=== PATIENT | male | born 1980 | race Caucasian/White ===

== ENCOUNTER 2017-02-25 19:34 | Emergency (ER) | payer OTHER ==
[~2017-02-25] VITALS: Ht 185.4 cm; Wt 133.8 kg
--- NOTE | 2017-02-25 20:52 | ED PSYCHIATRIC COMPLAINT ---
History of Present Illness General Chief Complaint: General Adult Stated Complaint: NEEDS REFILL OF ZOLOFT, PSYC RETIRED Source: patient Exam Limitations: no limitations Vital Signs & Intake/Output Vital Signs & Intake/Output Vital Signs Date Time Temp Pulse Resp B/P B/P Pulse O2 O2 Flow FiO2 Mean Ox Delivery Rate 02/25 2107 98.7 84 18 152/83 100 Room Air 02/25 2105 100 Room Air 02/25 2011 98.2 80 18 157/88 98 Room Air Allergies Coded Allergies: No Known Drug Allergies (NKDA 02/25/17) Reconcile Medications Clonazepam 0.5 MG TABLET 1 TAB PO QPM PRN ANXIETY (Reported) Sertraline HCl (Zoloft) 25 MG TABLET 1.5 TAB PO DAILY MENTAL HEALTH (Reported ) Sertraline HCl (Zoloft) 25 MG TABLET 1.5 TAB PO DAILY DEPRESSION Triage Note: PT TO ED REQUESTING MED REFILL. HIS PSYCHIATRIST RETIRED AND HE "NEEDS TO FIND A NEW ONE" TAKES ZOLOFT 15 MG 1.5 TABS DAILY Triage Nurses Notes Reviewed? yes Onset: Gradual Duration: constant Timing: recent history Severity: mild Severity Numbers: 1 HPI: Patient is a 37 Y/O male with a past medical history of depression who presents emergency room with a request of a psychiatric provider and medication refill in which he states that his previous provider had suddenly retired where patient has been prescribed Zoloft 25 mg one AND A half tablets for many years now, THE last doses presently one week ago. Patient denies any current symptoms denies any worsening depression and suicide homicidal ideation fever chills. Denies any illicit drug use. (SHELLEY YODER) Past History Travel History Traveled to [place] past 21 day No Medical History Any Pertinent Medical History? see below for history Psychiatric: anxiety, depression Surgical History Surgical History: non-contributory Psychosocial History What is your primary language Luxembourgish Tobacco Use: Quit >30 days ago ETOH Use: occasional use Illicit Drug Use: denies illicit drug use Family History Hx Contributory? No (SHELLEY YODER) Review of Systems Review of Systems Constitutional: Reports: no symptoms. EENTM: Reports: no symptoms. Respiratory: Reports: no symptoms. Cardiovascular: Reports: no symptoms. GI: Reports: no symptoms. Genitourinary: Reports: no symptoms. Musculoskeletal: Reports: no symptoms. Skin: Reports: no symptoms. Neurological/Psychological: Reports: no symptoms. Hematologic/Endocrine: Reports: no symptoms. Immunologic/Allergic: Reports: no symptoms. All Other Systems: Reviewed and Negative (SHELLEY YODER) Physical Exam Physical Exam General Appearance: no apparent distress, alert Neurological/Psychiatric: no motor/sensory deficits, awake, alert, calm Appearance/Memory/Insight: appropriate appearance, appropriate insight, denies illness Behavoir/Eye Contact/Speech: cooperative, normal speech, good eye contact Thoughts/Hallucinations: normal thought pattern, no apparent hallucination Comments: Well-developed well-nourished person in no acute distress HEENT: Normal EENT Neck: Supple, no lymphadenopathy, normal range of motion without pain or tenderness Back: Nontender, no CVA tenderness. Full range of motion Cardiovascular: Regular rate and rhythms no murmurs rubs or gallops, normal JVP Respiratory: Chest nontender. No respiratory distress.breath sounds clear to auscultation bilaterally Abdomen: Soft, nontender nondistended, no appreciable organomegaly. Normal bowel sounds. No ascites Extremity: No edema, no calf tenderness to palpation, normal and equal pulses. Neuro: Alert oriented x3, motor sensory normal, Skin: No appreciable rash on exposed skin, skin is warm and dry. Psych: Mood and affect is normal, memory and judgment is normal. SAD PERSONS Done? patient not suicidal (SHELLEY YODER) Progress Differential Diagnosis: drug intoxication, drug overdose, drug withdrawal, electrolyte abnormality, encephalitis, hypoglycemia, hypothyroidism, IC hem/mass /tumor, meningitis Plan of Care: Patient was in no apparent distress. Patient was given copy of psychiatric referral for follow-up It is confirmed from pharmacy reconciliation the patient does receives a 25 mg one half tablets of Zoloft once a day (SHELLEY YODER) Departure Departure Disposition: HOME OR SELF CARE Condition: Stable Clinical Impression Primary Impression: Depression Secondary Impressions: Medication refill Referrals: MICKY PHILLIPS DO (PCP/Family) Additional Instructions: As discussed please follow up and establish a psychiatric provider with a list provided to you in the emergency room. If symptoms worsen return to the emergency room. Begin the prescription Zoloft as directed for his symptoms, prescriptions waiting at [facility] Departure Forms: Customer Survey General Discharge Information Prescriptions: Current Visit Scripts Sertraline HCl (Zoloft) 1.5 TAB PO DAILY #45 TAB (SHELLEY YODER) PA/HIDE MILL WORKER Co-Sign Statement Statement: ED Attending supervision documentation- [] I saw and evaluated the patient. I have also reviewed all the pertinent lab results and diagnostic results. I agree with the findings and the plan of care as documented in the PA's/HIDE MILL WORKER's documentation. [X] I have reviewed the ED Record and agree with the PA's/HIDE MILL WORKER's documentation. [] Additions or exceptions (if any) to the PAs/HIDE MILL WORKER's note and plan are summarized below: [] (KAROLINE RM DO
[2017-02-25] MEDS ORDERED: ZOLOFT25 M1 PO ×2 (21:00→21:02)
[2017-02-25] MEDS ORDERED: CLONAZEPAM0.5 M2 PO (21:00)
[2017-02-25 21:07] VITALS: BP 152/83
== END 2017-02-25 21:05 ==
LOC: ERH 19:34
DX: F32.9 Major depressive disorder, single episode, unspecified (principal); Z76.0 Encounter for issue of repeat prescription
CPT/HCPCS: 99281